=== PATIENT | male | born 1945 | race Caucasian/White ===

== ENCOUNTER → 2016-09-25 | Outpatient (CLI) | payer MEDICARE, OTHER ==
[~2016-09-25] VITALS: Ht 167.6 cm; Wt 88.6 kg
[~2016-09-25] MED LIST: ALLO100T30 PO; AMLO10TA2 PO; ASPI-496 PO; ASPI325T80 PO; ATOR40TA78 PO; CARV6.2512 PO; CHOL10003 PO; FENO160T PO; HYDR12.58 PO; MULT-516 PO; OMEG1CAP35 PO; TAMS0.4C2 PO; potassium PO
[2016-09-25 15:07] LABS: BLOOD UREA NITROGEN 29 mg/dL (7-18)
== END | disposition home or self-care (01) ==
LOC: STAR 13:55
PROVIDERS: ATTEND Surgery
DX: Z01.818 Encounter for other preprocedural examination (principal); I73.9 Peripheral vascular disease, unspecified
CPT/HCPCS: 36415; 80048; 85025

== ENCOUNTER 2016-09-30 10:53 | Day surgery (SDC) | payer MEDICARE, OTHER ==
[~2016-09-30] VITALS: Ht 167.6 cm; Wt 89.5 kg
[2016-09-30 11:24] VITALS: BP 152/82
[2016-09-30] MEDS ORDERED: PROTAMINE SULFATE 10 MG/ML, 25ML ONE (13:11)
[2016-09-30] MEDS ORDERED: MIDAZOLAM 1 MG/ML, 5ML ONE ×2 (13:11→14:26)
[2016-09-30] MEDS ORDERED: FENTANYL PF 100 MCG/2ML ONE ×2 (13:12→14:26)
[2016-09-30] MEDS ORDERED: HEPARIN 1,000 UNITS/ML, 10ML ONE (13:12)
[2016-09-30] MEDS ORDERED: NALOXONE 1 MG/ML, 2ML ONE (13:12)
[2016-09-30] MEDS ORDERED: FLUMAZENIL 0.1 MG/1 ML, 5ML ONE (13:12)
[2016-09-30] MEDS ORDERED: CEFAZOLIN PMX 1GM/50ML 100 ML ONE (13:24)
[2016-09-30] MEDS ORDERED: LIDOCAINE 2%, 20ML ONE (13:31)
[2016-09-30] MEDS ORDERED: CLOPIDOGREL 300 MG TABLET ONE (14:35)
[2016-09-30] MEDS ORDERED: VISIPAQUE 270 MG/ML, 150ML BOTTLE ONE (14:59)
== END 2016-09-30 17:15 | disposition home or self-care (01) ==
LOC: OUT 10:53
PROVIDERS: ATTEND Surgery
DX: I70.213 Atherosclerosis of native arteries of extremities with intermittent claudication, bilateral legs (principal); I25.10 Atherosclerotic heart disease of native coronary artery without angina pectoris; I25.2 Old myocardial infarction; E78.00 Pure hypercholesterolemia, unspecified; M10.9 Gout, unspecified; E11.22 Type 2 diabetes mellitus with diabetic chronic kidney disease; I12.9 Hypertensive chronic kidney disease with stage 1 through stage 4 chronic kidney disease, or unspecified chronic kidney disease; N18.9 Chronic kidney disease, unspecified; Z95.5 Presence of coronary angioplasty implant and graft; Z88.8 Allergy status to other drugs, medicaments and biological substances; Z72.89 Other problems related to lifestyle; Z87.891 Personal history of nicotine dependence; Z82.49 Family history of ischemic heart disease and other diseases of the circulatory system; Z83.49 Family history of other endocrine, nutritional and metabolic diseases
CPT/HCPCS: 37226; 75630; 76937; 99156; 99157; C1725; C1751; C1760; C1769; C1874; C1894; C2623; J0690; J1644; J2250; J3010; J3490; Q9966; J2720; J2310

== ENCOUNTER 2016-10-01 00:52 | Emergency (ER) | payer MEDICARE, OTHER ==
[~2016-10-01] VITALS: Ht 167.6 cm; Wt 80.3 kg
[2016-10-01 01:48] VITALS: BP 130/68
== END 2016-10-01 02:46 | disposition home or self-care (01) ==
LOC: ED 02:31
DX: L76.82 Other postprocedural complications of skin and subcutaneous tissue (principal); I10 Essential (primary) hypertension; E78.5 Hyperlipidemia, unspecified; M10.9 Gout, unspecified; Z88.8 Allergy status to other drugs, medicaments and biological substances
CPT/HCPCS: 99281

== ENCOUNTER 2016-10-28 06:14 | Day surgery (SDC) | payer MEDICARE, OTHER ==
[~2016-10-28] VITALS: Ht 167.6 cm; Wt 89.5 kg
[~2016-10-28 06:14] MED LIST changes: +POTA99TA PO
[2016-10-28 07:03] VITALS: BP 142/81
[2016-10-28] MEDS ORDERED: LIDOCAINE 2%, 20ML ONE (07:33)
[2016-10-28] MEDS ORDERED: SODIUM CHLORIDE 0.9% 1,000 ML IV SCH (07:37)
[2016-10-28] MEDS ORDERED: MIDAZOLAM 1 MG/ML, 5ML ONE (07:55)
[2016-10-28] MEDS ORDERED: FENTANYL PF 100 MCG/2ML ONE (07:55)
[2016-10-28] MEDS ORDERED: PROTAMINE SULFATE 10 MG/ML, 25ML ONE (07:55)
[2016-10-28] MEDS ORDERED: NITROGLYCERIN 5 MG/ML, 10ML ONE (07:55)
[2016-10-28] MEDS ORDERED: HEPARIN 1,000 UNITS/ML, 10ML ONE (07:56)
[2016-10-28] MEDS ORDERED: NALOXONE 1 MG/ML, 2ML ONE (07:56)
[2016-10-28] MEDS ORDERED: FLUMAZENIL 0.1 MG/1 ML, 5ML ONE (07:56)
[2016-10-28] MEDS ORDERED: VISIPAQUE 270 MG/ML, 50ML BOTTLE ONE (08:00)
[2016-10-28] MEDS ORDERED: CEFAZOLIN PMX 1GM/50ML 50 ML ONE (08:24)
[2016-10-28] MEDS ORDERED: CLOPIDOGREL 75 MG TABLET ONE (09:05)
== END 2016-10-28 13:05 ==
LOC: OUT 06:14
PROVIDERS: ATTEND Surgery
DX: I70.211 Atherosclerosis of native arteries of extremities with intermittent claudication, right leg (principal); E11.51 Type 2 diabetes mellitus with diabetic peripheral angiopathy without gangrene; I25.10 Atherosclerotic heart disease of native coronary artery without angina pectoris; I25.2 Old myocardial infarction; E11.22 Type 2 diabetes mellitus with diabetic chronic kidney disease; I12.9 Hypertensive chronic kidney disease with stage 1 through stage 4 chronic kidney disease, or unspecified chronic kidney disease; N18.9 Chronic kidney disease, unspecified; M10.9 Gout, unspecified; Z95.5 Presence of coronary angioplasty implant and graft; Z87.891 Personal history of nicotine dependence; Z88.8 Allergy status to other drugs, medicaments and biological substances
CPT/HCPCS: 37226; 75710; 99156; 99157; C1725; C1751; C1760; C1769; C1874; C1894; C2623; J0690; J1644; J2250; J3010; J3490; J7030; Q9966; J2720; J2310

== ENCOUNTER → 2017-04-02 | Outpatient (CLI) | payer MEDICARE, OTHER ==
[~2017-04-02] MED LIST changes: +OMEG-158 PO; -OMEG1CAP35 PO; -POTA99TA PO; +POTA99TA2 PO
== END | disposition home or self-care (01) ==
LOC: CVU 09:29
PROVIDERS: ATTEND Surgery
DX: I77.1 Stricture of artery (principal); I70.201 Unspecified atherosclerosis of native arteries of extremities, right leg
CPT/HCPCS: 93922; 93925

== ENCOUNTER → 2017-11-14 | Outpatient (CLI) | payer MEDICARE, OTHER | END | disposition home or self-care (01) | LOC: CVU 06:45 | PROVIDERS: ATTEND Surgery | DX: I70.203 Unspecified atherosclerosis of native arteries of extremities, bilateral legs (principal); I10 Essential (primary) hypertension; I25.2 Old myocardial infarction | CPT/HCPCS: 93922; 93925 ==

== ENCOUNTER → 2017-12-25 | Outpatient (CLI) | payer MEDICARE, OTHER ==
[~2017-12-25] MED LIST changes: -AMLO10TA2 PO; +AMLO10TA6 PO; +COUMADIN PO
[2017-12-25 13:21] LABS: BASOPHILS # (AUTO) 0.03 x10^3/uL (0-0.1); BASOPHILS % (AUTO) 1 % (0-1); EOSINOPHILS # (AUTO) 0.14 x10^3/uL (0-0.4); EOSINOPHILS % (AUTO) 2 % (1-7); LYMPHOCYTES # (AUTO) 2.46 x10^3/uL (1-3.4); LYMPHOCYTES % (AUTO) 34 % (22-44); MD NO; MEAN CORPUSCULAR HEMOGLOBIN 31.6 pg (27.5-34.5); MEAN CORPUSCULAR HGB CONC 34.5 g/dL (33.2-36.2); MEAN CORPUSCULAR VOLUME 91.4 fL (81-97); MEAN PLATELET VOLUME 8.1 fL (7.4-10.4); MONOCYTES % (AUTO) 8 % (2-9); NEUTROPHILS # (AUTO) 3.98 x10^3/uL (1.8-6.8); NEUTROPHILS % (AUTO) 55 % (42-75); PLATELET COUNT 290 x10^3/uL (130-400); RED BLOOD COUNT 4.52 x10^6/uL (4.38-5.82); RED CELL DISTRIBUTION WIDTH 13.5 % (9.4-14.8)
[2017-12-25 13:29] LABS: ANION GAP 11 mmol/L (5-15); CHLORIDE 107 mmol/L (98-107); CREATININE 1.24 mg/dL (0.7-1.3)
== END | disposition home or self-care (01) ==
LOC: STAR 12:34
PROVIDERS: ATTEND Surgery
DX: Z01.818 Encounter for other preprocedural examination (principal); I70.212 Atherosclerosis of native arteries of extremities with intermittent claudication, left leg
CPT/HCPCS: 36415; 80048; 85025

== ENCOUNTER 2017-12-29 08:41 | Day surgery (SDC) | payer MEDICARE, OTHER ==
[~2017-12-29] VITALS: Ht 167.6 cm; Wt 86.9 kg
[2017-12-29] MEDS ORDERED: SODIUM CHLORIDE 0.9% 1,000 ML IV SCH (09:10)
[2017-12-29 09:11] VITALS: BP 151/79
[2017-12-29] MEDS ORDERED: FENTANYL PF 100 MCG/2ML ONE (10:25)
[2017-12-29] MEDS ORDERED: MIDAZOLAM 1 MG/ML, 5ML ONE (10:26)
[2017-12-29] MEDS ORDERED: FLUMAZENIL 0.1 MG/1 ML, 5ML ONE (10:26)
[2017-12-29] MEDS ORDERED: PROTAMINE SULFATE 10 MG/ML, 25ML ONE (10:26)
[2017-12-29] MEDS ORDERED: HEPARIN 1,000 UNITS/ML, 10ML ONE (10:26)
[2017-12-29] MEDS ORDERED: NITROGLYCERIN 5 MG/ML, 10ML ONE (10:26)
[2017-12-29] MEDS ORDERED: NALOXONE 1 MG/ML, 2ML ONE (10:26)
[2017-12-29] MEDS ORDERED: LIDOCAINE-MPF 2%, 2ML ONE (10:57)
[2017-12-29] MEDS ORDERED: CEFAZOLIN PMX 1GM/50ML 50 ML ONE (11:01)
[2017-12-29] MEDS ORDERED: CLOPIDOGREL 75 MG TABLET ONE (12:31)
[2017-12-29] MEDS ORDERED: VISIPAQUE 270 MG/ML, 150ML BOTTLE ONE (12:59)
[2017-12-29] MEDS ORDERED: ONDANSETRON 2MG/ML, 2ML IV PRN (15:00)
[2017-12-29] MEDS ORDERED: morphine SULFATE 10 MG/ML, 1ML IVPush PRN (15:00)
[2017-12-29] MEDS ORDERED: HYDROcodone/APAP 5/325 TABLET PO PRN (15:00)
== END 2017-12-29 16:45 | disposition home or self-care (01) ==
LOC: OUT 08:41
PROVIDERS: ATTEND Surgery
DX: I70.213 Atherosclerosis of native arteries of extremities with intermittent claudication, bilateral legs (principal); I25.10 Atherosclerotic heart disease of native coronary artery without angina pectoris; E11.9 Type 2 diabetes mellitus without complications; I10 Essential (primary) hypertension; M10.9 Gout, unspecified; Z98.890 Other specified postprocedural states; Z72.89 Other problems related to lifestyle
CPT/HCPCS: 37221; 37226; 75630; 76937; 82962; 99156; 99157; C1725; C1751; C1760; C1769; C1874; C1876; C1894; J0690; J1644; J2250; J2720; J3010; J3490; J7030; Q9966; J2310

== ENCOUNTER → 2019-12-10 | Outpatient (CLI) | payer MEDICARE, OTHER ==
[~2019-12-10] MED LIST changes: -AMLO10TA6 PO; +AMLO10TA8 PO; +CLOP75TA PO; +FENO134C PO; -HYDR12.58 PO; +HYDROCHLOROTH12.5 MG PO; +IBUP-1623 PO
[2019-12-10 11:16] LABS: ALBUMIN 3.7 g/dL (3.4-5.0); ANION GAP 5 mmol/L (5-15); CALCIUM 9.7 mg/dL (8.5-10.1); CHLORIDE 107 mmol/L (98-107)
[2019-12-10 11:19] LABS: ALANINE AMINOTRANSFERASE 27 U/L (12-78); ALKALINE PHOSPHATASE 44 U/L (45-117); BILIRUBIN,TOTAL 0.7 mg/dL (0.2-1.0); CREATININE 1.04 mg/dL (0.7-1.3); TOTAL PROTEIN 6.8 g/dL (6.4-8.2)
== END | disposition home or self-care (01) ==
LOC: STAR 08:51
PROVIDERS: ATTEND Neurological Surgery
DX: Z01.818 Encounter for other preprocedural examination (principal); M51.26 Other intervertebral disc displacement, lumbar region
CPT/HCPCS: 36415; 80053; 93005

== ENCOUNTER → 2019-12-16 | Outpatient (CLI) | payer MEDICARE, OTHER | END | disposition home or self-care (01) | LOC: STAR 12:28 | PROVIDERS: ATTEND Anesthesiology | DX: Z01.812 Encounter for preprocedural laboratory examination (principal); Z20.828 Contact with and (suspected) exposure to other viral communicable diseases | CPT/HCPCS: 36415; 87635 ==

== ENCOUNTER 2019-12-20 11:30 | Day surgery (SDC) | payer MEDICARE, OTHER ==
[~2019-12-20] VITALS: Ht 167.6 cm; Wt 82.6 kg
[~2019-12-20 11:30] MED LIST changes: +BACITRACIN 50,000 UNIT ONE; +BUPIVACAINE/EPI 0.5% 1:200K ONE; +BUPIVACAINE/PF 0.25% ONE; +EPINEPHRINE 1 MG/ML, 1ML ONE
[2019-12-20] MEDS ORDERED: LACTATED RINGERS 1,000 ML IV SCH (12:19)
[2019-12-20 12:20] VITALS: BP 167/80
[2019-12-20] MEDS ORDERED: CHLORHEXIDINE 15 ML UDC MM ONE (12:30)
[2019-12-20] MEDS ORDERED: CARV6.252 PO (12:44)
[2019-12-20 13:00] LABS: INTERNATIONAL NORMALIZED RATIO 0.95 (0.93-1.1); PROTHROMBIN TIME 9.8 Seconds (9.6-11.5)
[2019-12-20] MEDS ORDERED: MEPERIDINE/PF 25MG/0.5ML IVPush PRN (13:00)
[2019-12-20] MEDS ORDERED: ONDANSETRON 2MG/ML, 2ML IVPush PRN (13:00)
[2019-12-20] MEDS ORDERED: METHOCARBAMOL 1,000 MG in DEXTROSE 5% 100 ML IV PRN (13:00)
[2019-12-20] MEDS ORDERED: PROMETHAZINE 25 MG/ML, 1ML IVPush PRN (13:00)
[2019-12-20] MEDS ORDERED: hydrALAzine 20 MG/ML, 1ML IV PRN (13:00)
[2019-12-20] MEDS ORDERED: PROMETHAZINE 25 MG SUPP PR PRN (13:00)
[2019-12-20] MEDS ORDERED: OXYcodone 5 MG/5 ML ORAL.SOL UDC PO PRN (13:00)
[2019-12-20] MEDS ORDERED: FENTANYL PF 100 MCG/2ML IV PRN (13:00)
[2019-12-20] MEDS ORDERED: LABETALOL 5MG/ML, 20ML IV PRN (13:00)
[2019-12-20] MEDS ORDERED: HYDROmorphone 1 MG/ML, 1ML INJ IVPush PRN (13:00)
[2019-12-20] MEDS ORDERED: DIAZEPAM 5 MG/ML, 2ML IVPush PRN (13:00)
[2019-12-20] MEDS ORDERED: ACETAMINOPHEN 325 MG TABLET PO PRN (13:00)
[2019-12-20] MEDS ORDERED: FENTANYL PF 250 MCG/5ML ONE (13:25)
[2019-12-20] MEDS ORDERED: FENTANYL PF 100 MCG/2ML ONE (14:22)
[2019-12-20] MEDS ORDERED: methylPREDNISolone SOD SUCC 125 MG/2 ML ONE (14:23)
[2019-12-20] MEDS ORDERED: FENTANYL PF 100 MCG/2ML IM ONE (14:27)
[2019-12-20] MEDS ORDERED: SUCCINYLCHOLINE 20 MG/ML, 10ML ONE (14:41)
[2019-12-20] MEDS ORDERED: ROCURONIUM 10MG/ML,5ML ONE (14:41)
[2019-12-20] MEDS ORDERED: NEOSTIGMINE 1 MG/ML, 10ML ONE (14:41)
[2019-12-20] MEDS ORDERED: ONDANSETRON 2MG/ML, 2ML ONE (14:41)
[2019-12-20] MEDS ORDERED: CEFAZOLIN 1,000 MG ONE (14:41)
[2019-12-20] MEDS ORDERED: GLYCOPYRROLATE 0.2MG/1ML, 5ML ONE (14:41)
[2019-12-20] MEDS ORDERED: DEXAMETHASONE 4 MG/ML, 1ML ONE (14:41)
[2019-12-20] MEDS ORDERED: PROPOFOL 10 MG/ML, 20ML ONE (14:41)
[2019-12-20] MEDS ORDERED: OXYC-302 PO (14:46)
[2019-12-20] MEDS ORDERED: TIZA2TAB4 PO (14:46)
== END 2019-12-20 16:30 | disposition home or self-care (01) ==
LOC: OUT 11:30
PROVIDERS: ATTEND Neurological Surgery
DX: M51.27 Other intervertebral disc displacement, lumbosacral region (principal); M48.07 Spinal stenosis, lumbosacral region; M25.78 Osteophyte, vertebrae; I10 Essential (primary) hypertension; I25.10 Atherosclerotic heart disease of native coronary artery without angina pectoris; I25.2 Old myocardial infarction; E11.9 Type 2 diabetes mellitus without complications; E78.00 Pure hypercholesterolemia, unspecified; Z79.01 Long term (current) use of anticoagulants; Z79.02 Long term (current) use of antithrombotics/antiplatelets; Z79.82 Long term (current) use of aspirin; Z79.1 Long term (current) use of non-steroidal anti-inflammatories (NSAID); Z79.899 Other long term (current) drug therapy; Z86.718 Personal history of other venous thrombosis and embolism; Z87.891 Personal history of nicotine dependence; Z88.8 Allergy status to other drugs, medicaments and biological substances; Z98.1 Arthrodesis status; Z98.890 Other specified postprocedural states
CPT/HCPCS: 36415; 63047; 72100; 85610; 85730; J0171; J0330; J0690; J1100; J2405; J2704; J2710; J2930; J3010; J3490; J7120